=== PATIENT | female | born 1955 | race Caucasian/White ===

== ENCOUNTER 2017-05-21 16:48 | Emergency (ER) | payer BC ==
--- NOTE | 2017-05-21 17:55 | UC ---
Abdominal Pain Female HPI - HPI Summary HPI Summary: 62 YEAR OLD FEMALE PRESENTS WITH COMPLAINS OF RLQ PAIN - History of Current Complaint Stated Complaint: ABD PAIN LOWER RT QUAD Time Seen by Provider: 05/21/17 17:55 Hx Obtained From: Patient Onset/Duration: Sudden Onset Severity Initially: Severe Severity Currently: Severe Allergies/Adverse Reactions: Allergies Allergy/AdvReac Type Severity Reaction Status Date / Time No Known Allergies Allergy Verified 05/21/17 17:47 Home Medications: Home Medications Atorvastatin* [Lipitor 10 MG*] 10 mg BEDTIME 05/21/17 [History Confirmed ] Olmesartan Medoxomil [Benicar] 5 mg DAILY 05/21/17 [History Confirmed 05/21/17] PMH/Surg Hx/FS Hx/Imm Hx Previously Healthy: Yes - Surgical History Surgical History: None - Social History Alcohol Use: Daily Substance Use Type: None Review of Systems Constitutional: Negative Skin: Negative Eyes: Negative ENT: Negative Respiratory: Negative Cardiovascular: Negative Gastrointestinal: Abdominal Pain - RLQ PAIN Genitourinary: Negative Motor: Negative Neurovascular: Negative Musculoskeletal: Negative Neurological: Negative Psychological: Negative All Other Systems Reviewed And Are Negative: Yes Physical Exam Triage Information Reviewed: Yes Vital Signs Reviewed: Yes Eye Exam: Normal ENT Exam: Normal Dental Exam: Normal Neck exam: Normal Neck: Positive: 1 Respiratory Exam: Normal Cardiovascular Exam: Normal Abdomen Description: Positive: Other: - RLQ PAIN Musculoskeletal Exam: Normal Neurological Exam: Normal Psychological Exam: Normal Skin Exam: Normal Abd Pain Female Course/Dx - Differential Dx/Diagnosis Provider Diagnoses: RLQ PAIN Discharge - Discharge Plan Condition: Stable Disposition: OTHER Discharge Disposition Comment: PATIENT SUGGESTED TO GO TO THE ER. Patient Education Materials: Acute Abdominal Pain (ED) Referrals: Taya Santos MD [Primary Care Provider] - Additional Instructions: patient suggested to go to the er for severe rlq pain
[2017-05-21 17:56] VITALS: BP 155/90
== END 2017-05-21 18:08 ==
LOC: UCCORT 16:48
DX: R10.31 Right lower quadrant pain (principal)
CPT/HCPCS: 99212; G0463

== ENCOUNTER 2017-11-27 10:34 | Emergency (ER) | payer BC ==
[2017-11-27 11:03] VITALS: BP 125/73
[2017-11-27] MEDS ORDERED: predniSONE TAB* 20 MG PO ONE (11:14)
--- NOTE | 2017-11-27 11:15 | ED ---
Allergic Reaction/Systemic - HPI Summary HPI Summary: 62 yr old female with the complaint 62 yr old female with the complaint of hives on her abdomen only. Onset 930 pm last evening. She states she had flushed face, mild feeling of difficult swelling and hives on her anterior abdomen. Every thing has gotten better, and she has no symptoms of facial flushing now or tightness in throat, but still has some scant hives on abdomen. She states she has had sever allergic reactions in the past, and used to have EPI pen, but is out. She took 25 mg of benadryl only. Patient is psychiatric nursing assistant at [employer] - History of Current Complaint Chief Complaint: UCSkin Time Seen by Provider: 11/27/17 11:06 Pain Intensity: 0 - Allergies/Home Medications Allergies/Adverse Reactions: Allergies Allergy/AdvReac Type Severity Reaction Status Date / Time bee pollen Allergy Anaphylatic Verified 11/27/17 10:56 Shock Home Medications: Home Medications Cholecalciferol CAP/TAB(NF) [Vitamin D3 CAP/TAB (NF)] 3,000 unit PO DAILY [History Confirmed 11/27/17] diphenhydrAMINE HCl [Benadryl Allergy 25 MG CAP] 25 mg PO ONCE PRN 11/27/17 [ History Confirmed 11/27/17] PMH/Surg Hx/FS Hx/Imm Hx Endocrine/Hematology History: Denies: Hx Diabetes, Hx Thyroid Disease Cardiovascular History: Reports: Hx Hypertension Respiratory History: Denies: Hx Asthma - Surgical History Surgery Procedure, Year, and Place: ankle Infectious Disease History: No Infectious Disease History: Denies: Traveled Outside the [place] in Last 30 Days - Social History Occupation: Employed Full-time Lives: With Family Alcohol Use: Daily Alcohol Amount: wine Substance Use Type: Reports: None Smoking Status (MU): Never Smoked Tobacco Review of Systems Constitutional: Negative Positive: Other - hives anterior abdomen All Other Systems Reviewed And Are Negative: Yes Physical Exam Triage Information Reviewed: Yes Vital Signs On Initial Exam: Initial Vitals Temp Pulse Resp BP Pulse Ox 99.1 F 70 18 125/73 100 11/27/17 10:58 11/27/17 10:58 11/27/17 10:58 11/27/17 10:58 11/27/17 10:58 Vital Signs Reviewed: Yes Appearance: Positive: Well-Appearing, No Pain Distress Skin: Positive: Other - scant uriticaria abdominal wall. Eyes: Positive: EOMI, Conjunctiva Clear ENT: Positive: Pharynx normal. Negative: Muffled voice, Hoarse voice Neck: Positive: Nontender Respiratory/Lung Sounds: Positive: Clear to Auscultation, Breath Sounds Present Cardiovascular: Positive: RRR. Negative: Murmur Abdomen Description: Positive: Nontender Musculoskeletal: Positive: Strength/ROM Intact Neurological: Positive: Sensory/Motor Intact, Alert, Oriented to Person Place, Time, CN Intact II-III Psychiatric: Positive: Normal - Bia Coma Scale Best Eye Response: 4 - Spontaneous Best Motor Response: 6 - Obeys Commands Best Verbal Response: 5 - Oriented Coma Scale Total: 15 Diagnostics - Vital Signs Vital Signs Temp Pulse Resp BP Pulse Ox 11/27/17 10:58 99.1 F 70 18 125/73 100 - Laboratory Lab Statement: Any lab studies that have been ordered have been reviewed, and results considered in the medical decision making process. Allergic Reaction Course/Dx - Course Course Of Treatment: 62 yr old female with urticaria abdominal wall. Rx pred here and medrol dose madhav. FU with PMD. Epi pen refill given per her request. - Diagnoses Provider Diagnoses: Urticaria Discharge - Sign-Out/Discharge Documenting (check all that apply): Discharge/Admit/Transfer - Discharge Plan Condition: Good Disposition: HOME Prescriptions: EPINEPHrine [Epipen] 0.3 mg IJ ONCE #1 auto.injct methylPREDNISolone [Medrol] 4 mg PO .SEE MADHAV INSTRUCTION #1 [email or web address] Patient Education Materials: Urticaria (ED) Referrals: Taya Santos MD [Primary Care Provider] - 2 Days - Billing Disposition and Condition Condition: GOOD Disposition: Home
== END 2017-11-27 11:20 | disposition home or self-care (01) ==
LOC: UCCORT 10:34
DX: L50.9 Urticaria, unspecified (principal); I10 Essential (primary) hypertension; Z91.030 Bee allergy status
CPT/HCPCS: 99212; G0463; J7512